=== PATIENT | female | born 1960 | race Caucasian/White ===

== ENCOUNTER 2020-05-12 09:31 | Day surgery (SDC) | payer BC ==
[~2020-05-12] VITALS: Ht 165.1 cm; Wt 116.7 kg
[~2020-05-12 09:31] MED LIST: ALLERGY10 MG; ANASTROZOLE1 M2 PO; ATOR20 PO; CALCAVITDA PO; CHOL10002; ENAL10 PO; ENAL5; ESOM20; FISH1000; HYDACE5 PO; HYDACE5325 PO; LORA.5; NAPR500 PO; OMEP20ER PO; ONDA8 PO; PSYL5.85P; TAMO10 PO; THERA-D2000 UNIT PO; ZOLP5; ZYRTEC10 M2 PO
[2020-05-12] MEDS ORDERED: VENL25 (10:00)
[2020-05-12] MEDS ORDERED: OMEP20ER (10:00)
== END 2020-05-12 12:00 | disposition home or self-care (01) ==
LOC: ORSCSDS 09:31
PROVIDERS: Surgery
PROC: 0DJD8ZZ Inspection of Lower Intestinal Tract, Via Natural or Artificial Opening Endoscopic (ICD-10-PCS; principal; 2020-05-12 10:45)
PROC: 0DB68ZX Excision of Stomach, Via Natural or Artificial Opening Endoscopic, Diagnostic (ICD-10-PCS; principal; 2020-05-12 10:45)
PROC: 0DB48ZX Excision of Esophagogastric Junction, Via Natural or Artificial Opening Endoscopic, Diagnostic (ICD-10-PCS; principal; 2020-05-12 10:45)
DX: K21.9 Gastro-esophageal reflux disease without esophagitis (principal); K57.30 Diverticulosis of large intestine without perforation or abscess without bleeding; Z12.11 Encounter for screening for malignant neoplasm of colon; Z80.0 Family history of malignant neoplasm of digestive organs; I10 Essential (primary) hypertension; E66.01 Morbid (severe) obesity due to excess calories; Z68.41 Body mass index [BMI] 40.0-44.9, adult; Z79.899 Other long term (current) drug therapy
CPT/HCPCS: 43239; G0121; 88305; 88342; J2405; J2704; J7120

== ENCOUNTER 2023-01-18 07:31 | Day surgery (SDC) | payer BC ==
[~2023-01-18] VITALS: Ht 165.1 cm; Wt 120.7 kg
[~2023-01-18 07:31] MED LIST changes: +OMEP20ER; +VENL25
[2023-01-18] MEDS ORDERED: FISH OIL 1,0001 EA10 (07:52)
[2023-01-18 09:07] VITALS: BP 91/59
== END 2023-01-18 09:09 | disposition home or self-care (01) ==
LOC: ORSCSDS 07:31
PROVIDERS: Surgery
PROC: 0DB48ZX Excision of Esophagogastric Junction, Via Natural or Artificial Opening Endoscopic, Diagnostic (ICD-10-PCS; 2023-01-18)
PROC: 0DB68ZX Excision of Stomach, Via Natural or Artificial Opening Endoscopic, Diagnostic (ICD-10-PCS; principal; 2023-01-18 08:45)
DX: K22.70 Barrett's esophagus without dysplasia (principal); K31.9 Disease of stomach and duodenum, unspecified; K29.70 Gastritis, unspecified, without bleeding; I10 Essential (primary) hypertension; E78.00 Pure hypercholesterolemia, unspecified; Z85.3 Personal history of malignant neoplasm of breast; E66.01 Morbid (severe) obesity due to excess calories; Z68.41 Body mass index [BMI] 40.0-44.9, adult; Z79.899 Other long term (current) drug therapy
CPT/HCPCS: 88305; 88342; J2704; J7120